=== PATIENT | female | born 1955 | race Asian ===

== ENCOUNTER 2018-02-25 07:08 | Inpatient (IN) | payer OTHER ==
[~2018-02-25 07:08] MED LIST: CEFAZOLIN 1 GM INJ; DEXAMETHASONE 4 MG/ML 1 ML INJ; ONDANSETRON 4 MG INJ
[2018-02-25] MEDS ORDERED: FENTAnyl 50 MCG/ML VIAL (07:57)
[2018-02-25] MEDS ORDERED: PROPOFOL 20 ML (07:58)
[2018-02-25] MEDS ORDERED: MIDAZOLAM 1 MG/ML 2 ML INJ (07:58)
[2018-02-25] MEDS ORDERED: METOCLOPRAMIDE 10 MG INJ (08:00)
[2018-02-25] MEDS ORDERED: LIDOCAINE 2% (SDV) 5 ML INJ (08:00)
[2018-02-25] MEDS: ACETAMINOPHEN 1000MG/100ML IV 100 ML IVPB (08:07)
[2018-02-25] MEDS: oxyCODONE (CR) 10 MG TAB [oxyCONTIN] PO (08:08)
[2018-02-25] MEDS: ONDANSETRON 4 MG INJ IV ×4 (08:08→22:18)
[2018-02-25] MEDS: LACTATED RINGER'S 1,000 ML IV* (08:08)
[2018-02-25] MEDS: LANSOPRAZOLE 30 MG CAP PO (08:08)
[2018-02-25] MEDS: DEXAMETHASONE 4 MG/ML 1 ML INJ IV (08:08)
[2018-02-25] MEDS ORDERED: BUPIVACAINE 0.75%/DEXT (SPINAL) 2 ML INJ (08:25)
[2018-02-25] MEDS ORDERED: morphine SULFATE/PF (10 MG/10 ML) INJ (08:25)
[2018-02-25] MEDS ORDERED: EPINEPHrine 1 MG INJ (08:26)
[2018-02-25] MEDS ORDERED: DIPHENHYDRAMINE 50 MG INJ IV ×2 (09:00→10:00)
[2018-02-25] MEDS: ASPIRIN (EC) 325 MG TAB PO ×3 (09:00→20:41)
[2018-02-25] MEDS: GABAPENTIN 100 MG CAP PO ×2 (09:00→20:40)
[2018-02-25] MEDS ORDERED: MAGNESIUM HYDROXIDE 30ML CUP PO (09:00)
[2018-02-25] MEDS ORDERED: NACL 0.9% 3 ML SYG IV (09:00)
[2018-02-25] MEDS ORDERED: BETHANECHOL 25 MG TAB PO (09:00)
[2018-02-25] MEDS ORDERED: BISACODYL 10 MG SUPP PR (09:00)
[2018-02-25] MEDS ORDERED: oxyCODONE 5 MG TAB PO (09:00)
[2018-02-25] MEDS ORDERED: NALOXONE (0.4 MG/ML) INJ IV (09:00)
[2018-02-25] MEDS ORDERED: NA PHOSPHATE/BIPHOS 133 ML ENEMA PR (09:00)
[2018-02-25] MEDS: TRANEXAMIC ACID 1,000 MG in NS 100 ML PRE-OP X1 IVPB (09:00)
[2018-02-25] MEDS: TRANEXAMIC ACID 1,000 MG in NS 100 ML INTRA-OP X1 IVPB (09:30)
[2018-02-25] MEDS ORDERED: MEPERIDINE 25 MG INJ IV (10:00)
[2018-02-25] MEDS ORDERED: IPRATROPIUM (NEB) 0.5 MG/2.5 ML AMP HHN (10:00)
[2018-02-25] MEDS ORDERED: ONDANSETRON 4 MG INJ IV (10:00)
[2018-02-25] MEDS ORDERED: FENTAnyl 50 MCG/ML VIAL IV ×2 (10:00)
[2018-02-25] MEDS ORDERED: HYDROmorphONE 1 MG/5 ML IV SYRINGE IV ×3 (10:00)
[2018-02-25] MEDS: CEFAZOLIN 1 GM/50 ML (PMX) 50 ML IVPB ×3 (10:20→18:03)
[2018-02-25] MEDS: BACITRACIN 50000 UNITS INJ (10:27)
[2018-02-25] MEDS: POLYMYXIN B 500000 UNIT INJ (10:29)
[2018-02-25] MEDS: POLYMYXIN/BACITRACIN 1L IRRIG (10:29)
[2018-02-25] MEDS ORDERED: HIP PAIN COCKTAIL (CEFUROXIME) INJ (10:38)
[2018-02-25] MEDS: DOCUSATE SODIUM 100 MG CAP PO (12:47)
[2018-02-25] MEDS: SOD CHLORIDE 0.9% 1,000 ML IV (14:10)
[2018-02-25] MEDS ORDERED: GLUCAGON 1 MG INJ IM (16:00)
[2018-02-25] MEDS ORDERED: GLUCOSE GEL 15 GRAM TUBE BUCCAL (16:00)
[2018-02-25] MEDS ORDERED: GLUCOSE GEL 15 GRAM TUBE PO ×2 (16:00)
[2018-02-25] MEDS ORDERED: DEXTROSE 50% 50 ML SYRINGE IV ×2 (16:00)
[2018-02-25] MEDS: metFORMIN 500 MG TAB PO (18:04)
[2018-02-25] MEDS: INSULIN ASPART [NOVOLOG] 3 ML PEN SC ×2 (18:05→20:40)
[2018-02-25] MEDS: ATORVASTATIN 20 MG TAB PO (20:41)
[2018-02-26] MEDS: CEFAZOLIN 1 GM/50 ML (PMX) 50 ML IVPB (01:54)
[2018-02-26] MEDS: ACCU-CHEK XX ×2 (02:11→22:02)
[2018-02-26] MEDS: ONDANSETRON 4 MG INJ IV (03:00)
[2018-02-26] MEDS: SOD CHLORIDE 0.9% 1,000 ML IV ×2 (03:48→17:31)
[2018-02-26] MEDS: PANTOPRAZOLE (EC) 40 MG TAB PO (05:28)
[2018-02-26 05:49] LABS: ADD MAN DIFF? NO
[2018-02-26 05:55] LABS: BASOPHILS % 0.1 % (0.0-2.0); HEMATOCRIT 22.8 % (37.0-47.0); HEMOGLOBIN 7.3 g/dl (12.0-16.0); LYMPHOCYTES # 0.9 10^3/ul (0.8-2.9); LYMPHOCYTES % 11.9 % (15.0-51.0); MEAN CORPUSCULAR HEMOGLOBIN 30.2 pg (29.0-33.0); MEAN CORPUSCULAR VOLUME 94.2 fl (82.0-101.0); MEAN PLATELET VOLUME 10.4 fl (7.4-10.4); MONOCYTES % 13.3 % (0.0-11.0); NEUTROPHIL # 5.7 10^3/ul (1.6-7.5); NEUTROPHILS % 74.3 % (39.0-77.0); PLATELET COUNT 195 10^3/UL (140-415); RED BLOOD COUNT 2.42 10^6/ul (4.20-5.40)
[2018-02-26 05:55] LABS: WHITE BLOOD COUNT 7.7 10^3/ul (4.8-10.8)
[2018-02-26 06:14] LABS: ANION GAP 13 (8-16); BLOOD UREA NITROGEN 22 mg/dl (7-20); CALCIUM 8.7 mg/dl (8.4-10.2); CARBON DIOXIDE 23 mmol/L (21-31); CHLORIDE 109 mmol/L (97-110); CREATININE 1.45 mg/dl (0.44-1.00); GLUCOSE 114 mg/dl (70-220); POTASSIUM 4.9 mmol/L (3.5-5.1); SODIUM 140 mmol/L (135-144)
[2018-02-26] MEDS: INSULIN ASPART [NOVOLOG] 3 ML PEN SC ×6 (07:50→21:00)
[2018-02-26] MEDS: DOCUSATE SODIUM 100 MG CAP PO ×2 (08:57→21:05)
[2018-02-26] MEDS: oxyCODONE 5 MG TAB PO ×4 (08:58→21:12)
[2018-02-26] MEDS: FERROUS FUMARATE (SR) TAB PO ×2 (08:58→21:06)
[2018-02-26] MEDS: metFORMIN 500 MG TAB PO (08:58)
[2018-02-26] MEDS: CELECOXIB 200 MG CAP PO ×2 (08:59→21:06)
[2018-02-26] MEDS: LISINOPRIL 10 MG TAB PO (08:59)
[2018-02-26] MEDS: ASPIRIN (EC) 325 MG TAB PO ×2 (08:59→21:06)
[2018-02-26] MEDS: GABAPENTIN 100 MG CAP PO ×2 (09:00→21:00)
[2018-02-26 11:15] LABS: ADD UMIC YES; UR ASCORBIC ACID NEGATIVE (NEGATIVE); UR BACTERIA FEW /HPF (NONE SEEN); UR BILIRUBIN (Dip) NEGATIVE (NEGATIVE); UR BLOOD (Dip) 1+ mg/dL (NEGATIVE); UR CLARITY SLIGHTLY CLOUDY (CLEAR); UR COLOR STRAW (YELLOW); UR GLUCOSE (Dip) NEGATIVE (NEGATIVE); UR KETONES (Dip) NEGATIVE (NEGATIVE); UR LEUKOCYTE ESTERASE (Dip) 3+ Leu/ul (NEGATIVE); UR MUCUS FEW /HPF (NONE SEEN); UR NITRITE (Dip) NEGATIVE (NEGATIVE); UR RBC 5 /HPF (0-5); UR SPECIFIC GRAVITY (Dip) 1.011 (1.003-1.030); UR TOTAL PROTEIN (Dip) NEGATIVE (NEGATIVE); UR UROBILINOGEN (Dip) NEGATIVE (NEGATIVE); UR WBC 88 /HPF (0-5)
[2018-02-26 12:12] LABS: IRON 31 ug/dl (35-150)
[2018-02-26] MEDS: SOD CHLORIDE 0.9% 500 ML IV (12:20)
[2018-02-26 12:21] LABS: % IRON SATURATION 12 % SAT (22-52); TOTAL IRON BINDING CAPACITY 257 ug/dl (241-421)
[2018-02-26 12:27] LABS: HEMOGLOBIN A1C 5.7 % (0-5.9)
[2018-02-26 15:08] LABS: HEMATOCRIT 21.3 % (37.0-47.0)
[2018-02-26 15:23] LABS: HEMOGLOBIN 6.6 g/dl (12.0-16.0)
[2018-02-26] MEDS: SOD CHLORIDE 0.9% 250 ML IV* (15:34)
[2018-02-26] MEDS: SOD FERRIC GLUC COMPLX 125 MG in SOD CHLORIDE 0.9% 100 ML IVPB (17:27)
[2018-02-26] MEDS: INSULIN GLARGINE [LANTus] (100 UNITS/ML) SYG SC (21:04)
[2018-02-26] MEDS: ATORVASTATIN 20 MG TAB PO (21:06)
[2018-02-26 23:22] LABS: IMMEDIATE SPIN CROSSMATCH 1 2
[2018-02-27 01:13] LABS: HEMATOCRIT 24.9 % (37.0-47.0); HEMOGLOBIN 8.1 g/dl (12.0-16.0)
[2018-02-27] MEDS: SOD CHLORIDE 0.9% 1,000 ML IV ×2 (05:00→16:57)
[2018-02-27] MEDS: oxyCODONE 5 MG TAB PO ×5 (05:00→20:57)
[2018-02-27] MEDS: PANTOPRAZOLE (EC) 40 MG TAB PO (05:02)
[2018-02-27 05:11] LABS: WHITE BLOOD COUNT 7.2 10^3/ul (4.8-10.8)
[2018-02-27 05:11] LABS: ADD MAN DIFF? NO; BASOPHILS % 0.3 % (0.0-2.0); EOSINOPHILS # 0.1 10^3/ul (0.0-0.5); EOSINOPHILS % 1.3 % (0.0-7.0); HEMATOCRIT 27.1 % (37.0-47.0); LYMPHOCYTES # 1.2 10^3/ul (0.8-2.9); LYMPHOCYTES % 16.3 % (15.0-51.0); MEAN CORPUSCULAR HEMOGLOBIN 31.3 pg (29.0-33.0); MEAN CORPUSCULAR HGB CONC 33.2 g/dl (32.0-37.0); MEAN CORPUSCULAR VOLUME 94.1 fl (82.0-101.0); MEAN PLATELET VOLUME 10.5 fl (7.4-10.4); MONOCYTE # 0.9 10^3/ul (0.3-0.9); MONOCYTES % 12.1 % (0.0-11.0); NEUTROPHILS % 69.7 % (39.0-77.0); PLATELET COUNT 137 10^3/UL (140-415); RED BLOOD COUNT 2.88 10^6/ul (4.20-5.40); RED CELL DISTRIBUTION WIDTH 13.2 % (11.5-14.5)
[2018-02-27 05:25] LABS: IRON 142 ug/dl (35-150)
[2018-02-27 05:34] LABS: % IRON SATURATION 67 % SAT (22-52); TOTAL IRON BINDING CAPACITY 213 ug/dl (241-421)
[2018-02-27 06:38] LABS: ANION GAP 10 (8-16); BLOOD UREA NITROGEN 21 mg/dl (7-20); CALCIUM 8.1 mg/dl (8.4-10.2); CARBON DIOXIDE 23 mmol/L (21-31); CHLORIDE 111 mmol/L (97-110); CREATININE 1.34 mg/dl (0.44-1.00); GLUCOSE 101 mg/dl (70-220); POTASSIUM 4.4 mmol/L (3.5-5.1); SODIUM 140 mmol/L (135-144)
[2018-02-27] MEDS: INSULIN ASPART [NOVOLOG] 3 ML PEN SC ×7 (07:50→21:00)
[2018-02-27] MEDS: GABAPENTIN 100 MG CAP PO ×3 (08:37→21:00)
[2018-02-27] MEDS: DOCUSATE SODIUM 100 MG CAP PO ×3 (08:37→21:00)
[2018-02-27] MEDS: ASPIRIN (EC) 325 MG TAB PO ×2 (08:37→20:54)
[2018-02-27] MEDS: FERROUS FUMARATE (SR) TAB PO ×2 (08:37→20:54)
[2018-02-27] MEDS: CELECOXIB 200 MG CAP PO ×2 (08:37→20:54)
[2018-02-27 12:29] LABS: HEMOGLOBIN 8.7 g/dl (12.0-16.0)
[2018-02-27] MEDS: LEVOFLOXACIN 500MG/D5W (PMX) 100 ML IVPB (15:00)
[2018-02-27] MEDS ORDERED: LEVOFLOXACIN 500MG/D5W (PMX) 100 ML IVPB (15:00)
[2018-02-27] MEDS: SOD FERRIC GLUC COMPLX 125 MG in SOD CHLORIDE 0.9% 100 ML IVPB (16:53)
[2018-02-27 18:47] LABS: HEMATOCRIT 28.9 % (37.0-47.0); HEMOGLOBIN 9.4 g/dl (12.0-16.0)
[2018-02-27] MEDS: ATORVASTATIN 20 MG TAB PO (20:53)
[2018-02-27] MEDS: INSULIN GLARGINE [LANTus] (100 UNITS/ML) SYG SC (20:53)
[2018-02-27] MEDS: ACCU-CHEK XX (21:29)
[2018-02-28] MEDS: PANTOPRAZOLE (EC) 40 MG TAB PO (05:51)
[2018-02-28] MEDS: SENNA/DOCUSATE NA (8.6MG/50MG) TAB PO (05:51)
[2018-02-28] MEDS: oxyCODONE 5 MG TAB PO ×3 (05:53→17:09)
[2018-02-28] MEDS: SOD CHLORIDE 0.9% 1,000 ML IV (05:55)
[2018-02-28 06:00] LABS: ADD MAN DIFF? NO
[2018-02-28 06:08] LABS: BASOPHILS % 0.3 % (0.0-2.0); EOSINOPHILS # 0.2 10^3/ul (0.0-0.5); EOSINOPHILS % 2.2 % (0.0-7.0); HEMATOCRIT 26.6 % (37.0-47.0); HEMOGLOBIN 8.7 g/dl (12.0-16.0); LYMPHOCYTES # 1.1 10^3/ul (0.8-2.9); LYMPHOCYTES % 13.8 % (15.0-51.0); MEAN CORPUSCULAR HEMOGLOBIN 31.1 pg (29.0-33.0); MEAN CORPUSCULAR HGB CONC 32.7 g/dl (32.0-37.0); MEAN PLATELET VOLUME 10.5 fl (7.4-10.4); MONOCYTE # 0.8 10^3/ul (0.3-0.9); MONOCYTES % 10.4 % (0.0-11.0); NEUTROPHIL # 5.7 10^3/ul (1.6-7.5); NEUTROPHILS % 72.7 % (39.0-77.0); PLATELET COUNT 133 10^3/UL (140-415); RED CELL DISTRIBUTION WIDTH 13.4 % (11.5-14.5)
[2018-02-28 06:08] LABS: WHITE BLOOD COUNT 7.9 10^3/ul (4.8-10.8)
[2018-02-28 06:26] LABS: ANION GAP 8 (8-16); BLOOD UREA NITROGEN 14 mg/dl (7-20); CALCIUM 8.2 mg/dl (8.4-10.2); CARBON DIOXIDE 23 mmol/L (21-31); CHLORIDE 112 mmol/L (97-110); CREATININE 1.27 mg/dl (0.44-1.00); GLUCOSE 78 mg/dl (70-220); POTASSIUM 4.1 mmol/L (3.5-5.1); SODIUM 139 mmol/L (135-144)
[2018-02-28] MEDS: INSULIN ASPART [NOVOLOG] 3 ML PEN SC ×7 (07:50→17:55)
[2018-02-28] MEDS: DOCUSATE SODIUM 100 MG CAP PO (08:50)
[2018-02-28] MEDS: FERROUS FUMARATE (SR) TAB PO (08:51)
[2018-02-28] MEDS: CELECOXIB 200 MG CAP PO (08:51)
[2018-02-28] MEDS: ASPIRIN (EC) 325 MG TAB PO (08:51)
[2018-02-28] MEDS: GABAPENTIN 100 MG CAP PO (09:00)
[2018-02-28] MEDS: LEVOFLOXACIN 250MG/D5W (PMX) 50 ML IVPB (15:00)
[2018-02-28] MEDS: SOD FERRIC GLUC COMPLX 125 MG in SOD CHLORIDE 0.9% 100 ML IVPB (16:50)
[2018-03-02 18:46] LABS: PTH CALCIUM 7.8 mg/dL (8.6-10.4)
[2018-03-03 06:41] LABS: PTH INTACT 50 pg/mL (14-64)
== END 2018-02-28 18:45 | disposition home health service (06) | DRG 470 ==
LOC: REC 07:08 → MS1 13:47
PROVIDERS: Orthopaedic Surgery Adult Reconstructive Orthopaedic Surgery
PROC: 0SRB04A Replacement of Left Hip Joint with Ceramic on Polyethylene Synthetic Substitute, Uncemented, Open Approach (ICD-10-PCS; principal; 2018-02-25 09:00)
PROC: 8E0YXBZ Computer Assisted Procedure of Lower Extremity (ICD-10-PCS; 2018-02-25 09:00)
PROC: 30233N1 Transfusion of Nonautologous Red Blood Cells into Peripheral Vein, Percutaneous Approach (ICD-10-PCS; 2018-02-25 09:30)
DX: M16.12 Unilateral primary osteoarthritis, left hip (principal); N17.9 Acute kidney failure, unspecified; D62 Acute posthemorrhagic anemia; N39.0 Urinary tract infection, site not specified; I10 Essential (primary) hypertension; E78.5 Hyperlipidemia, unspecified; E11.9 Type 2 diabetes mellitus without complications; I95.9 Hypotension, unspecified; D50.9 Iron deficiency anemia, unspecified
CPT/HCPCS: 36430; 72170; 73500; 73530; 76775; 80048; 81001; 82306; 82652; 82962; 83036; 83540; 83970; 85014; 85018; 85025; 86850; 86900; 86901; 86920; 87081; 87086; 88304; 88311; 97110; 97116; 97161; 97166; 97530

== ENCOUNTER 2018-03-31 05:42 | Inpatient (IN) | payer OTHER ==
[2018-03-31] MEDS: CEFAZOLIN 2 GM/50 ML (PMX) 50 ML IVPB (06:30)
[2018-03-31] MEDS ORDERED: LACTATED RINGER'S 1,000 ML IV* (06:30)
[2018-03-31] MEDS ORDERED: EPHEDrine SULFATE 50 MG/5 ML SYG (07:00)
[2018-03-31 07:28] LABS: ADD MAN DIFF? NO
[2018-03-31] MEDS ORDERED: CEFAZOLIN 1 GM INJ (07:30)
[2018-03-31] MEDS ORDERED: ROCURONIUM 50 MG INJ ×2 (07:30→10:09)
[2018-03-31] MEDS ORDERED: PROPOFOL 20 ML (07:30)
[2018-03-31] MEDS ORDERED: MIDAZOLAM 1 MG/ML 2 ML INJ (07:31)
[2018-03-31] MEDS ORDERED: morphine SULFATE/PF (10 MG/10 ML) INJ (07:31)
[2018-03-31] MEDS ORDERED: ROPIVACAINE 0.5 % 30 ML VIAL (07:31)
[2018-03-31] MEDS ORDERED: BUPIVACAINE 0.75%/DEXT (SPINAL) 2 ML INJ (07:31)
[2018-03-31 07:37] LABS: BASOPHILS % 0.7 % (0.0-2.0); EOSINOPHILS # 0.2 10^3/ul (0.0-0.5); EOSINOPHILS % 3.7 % (0.0-7.0); HEMATOCRIT 34.6 % (37.0-47.0); HEMOGLOBIN 11.1 g/dl (12.0-16.0); LYMPHOCYTES # 1.2 10^3/ul (0.8-2.9); LYMPHOCYTES % 21.1 % (15.0-51.0); MEAN CORPUSCULAR HEMOGLOBIN 30.6 pg (29.0-33.0); MEAN CORPUSCULAR HGB CONC 32.1 g/dl (32.0-37.0); MEAN CORPUSCULAR VOLUME 95.3 fl (82.0-101.0); MEAN PLATELET VOLUME 11.6 fl (7.4-10.4); MONOCYTE # 0.5 10^3/ul (0.3-0.9); MONOCYTES % 8.5 % (0.0-11.0); NEUTROPHIL # 3.7 10^3/ul (1.6-7.5); NEUTROPHILS % 65.8 % (39.0-77.0); PLATELET COUNT 217 10^3/UL (140-415); RED BLOOD COUNT 3.63 10^6/ul (4.20-5.40); RED CELL DISTRIBUTION WIDTH 12.8 % (11.5-14.5)
[2018-03-31 07:37] LABS: WHITE BLOOD COUNT 5.6 10^3/ul (4.8-10.8)
[2018-03-31] MEDS: SOD CHLORIDE 0.9% 1,000 ML IV ×2 (07:41→16:20)
[2018-03-31 07:54] LABS: INR 0.93; PROTIME 12.6 Sec (11.9-14.9)
[2018-03-31 07:55] LABS: PARTIAL THROMBOPLASTIN TIME 29.7 Sec (25.0-35.0)
[2018-03-31 07:56] LABS: ALANINE AMINOTRANSFERASE 20 IU/L (13-69); ALBUMIN 4.1 g/dl (3.3-4.9); ALBUMIN/GLOBULIN RATIO 1.13; ALKALINE PHOSPHATASE 98 IU/L (42-121); ANION GAP 15 (8-16); ASPARTATE AMINO TRANSFERASE 24 IU/L (15-46); BILIRUBIN,INDIRECT 0.5 mg/dl (0-1.1); BILIRUBIN,TOTAL 0.5 mg/dl (0.2-1.3); BLOOD UREA NITROGEN 34 mg/dl (7-20); CALCIUM 9.6 mg/dl (8.4-10.2); CARBON DIOXIDE 25 mmol/L (21-31); CHLORIDE 104 mmol/L (97-110); CREATININE 1.53 mg/dl (0.44-1.00); GLUCOSE 90 mg/dl (70-220); SODIUM 139 mmol/L (135-144); TOTAL PROTEIN 7.7 g/dl (6.1-8.1)
[2018-03-31] MEDS ORDERED: PHENYLephrine (100 MCG/ML) 5ML SYG ×3 (07:59→09:30)
[2018-03-31] MEDS ORDERED: MAGNESIUM HYDROXIDE 30ML CUP PO (08:00)
[2018-03-31] MEDS ORDERED: BISACODYL 10 MG SUPP PR (08:00)
[2018-03-31] MEDS: ASPIRIN (EC) 325 MG TAB PO (08:00)
[2018-03-31] MEDS ORDERED: NACL 0.9% 3 ML SYG IV (08:00)
[2018-03-31] MEDS ORDERED: NA PHOSPHATE/BIPHOS 133 ML ENEMA PR (08:00)
[2018-03-31] MEDS ORDERED: DIPHENHYDRAMINE 50 MG INJ IV ×3 (08:00→10:30)
[2018-03-31] MEDS ORDERED: ONDANSETRON 4 MG INJ IV ×2 (08:00→10:30)
[2018-03-31] MEDS ORDERED: NALOXONE (0.4 MG/ML) INJ IV ×2 (08:00→10:30)
[2018-03-31] MEDS ORDERED: BETHANECHOL 25 MG TAB PO (08:00)
[2018-03-31] MEDS ORDERED: ONDANSETRON 4 MG INJ (08:20)
[2018-03-31] MEDS ORDERED: METOCLOPRAMIDE 10 MG INJ (08:20)
[2018-03-31] MEDS ORDERED: HETASTARCH 6% NACL 500 ML (08:20)
[2018-03-31] MEDS ORDERED: ACETAMINOPHEN 1000MG/100ML IV 100 ML (08:20)
[2018-03-31] MEDS ORDERED: DEXAMETHASONE 4 MG/ML 1 ML INJ (08:20)
[2018-03-31] MEDS: LACTATED RINGER'S 1,000 ML IV* (08:30)
[2018-03-31] MEDS: BACITRACIN 50000 UNITS INJ IRR (08:45)
[2018-03-31] MEDS: POLYMYXIN B 500000 UNIT INJ (08:45)
[2018-03-31] MEDS: HIP PAIN COCKTAIL (CEFUROXIME) INJ (08:46)
[2018-03-31] MEDS: TRANEXAMIC ACID 1,000 MG in NS 100 ML PRE-OP X1 IVPB (08:47)
[2018-03-31] MEDS: GABAPENTIN 100 MG CAP PO ×3 (09:00→20:49)
[2018-03-31] MEDS ORDERED: ALBUMIN HUMAN 5% 250 ML (10:09)
[2018-03-31] MEDS ORDERED: ALBUMIN HUMAN 5% 250 ML IV (10:30)
[2018-03-31] MEDS ORDERED: HYDROmorphONE 1 MG/5 ML IV SYRINGE IV ×3 (10:30)
[2018-03-31] MEDS ORDERED: LABETALOL HCL 20MG INJ IV (10:30)
[2018-03-31] MEDS ORDERED: MEPERIDINE 25 MG INJ IV (10:30)
[2018-03-31] MEDS ORDERED: FENTAnyl 50 MCG/ML VIAL IV ×3 (10:30)
[2018-03-31] MEDS ORDERED: ACETAMINOPHEN 500 MG TAB PO (10:30)
[2018-03-31] MEDS ORDERED: HYDROmorphONE 0.5 MG/0.5 ML SYG IV ×2 (10:30)
[2018-03-31] MEDS ORDERED: HYDROCODONE/APAP (5/325) TAB PO (10:30)
[2018-03-31] MEDS ORDERED: NALBUPHINE HCL (10 MG/1 ML) INJ IV (10:30)
[2018-03-31] MEDS ORDERED: hydrALAzine 20 MG INJ IV (10:30)
[2018-03-31] MEDS ORDERED: EPHEDrine SULFATE 50 MG/5 ML SYG IV (10:30)
[2018-03-31] MEDS ORDERED: morphine 2 MG INJ IV (10:30)
[2018-03-31] MEDS ORDERED: OXYCODONE/ACETAMINOPHEN (5/325) TAB PO ×2 (10:30)
[2018-03-31] MEDS ORDERED: METOCLOPRAMIDE 10 MG INJ IV (10:30)
[2018-03-31] MEDS: TRANEXAMIC ACID 1,000 MG in NS 100 ML INTRA-OP X1 IVPB ×2 (11:00)
[2018-03-31] MEDS ORDERED: SUGAMMADEX SODIUM 200 MG/2 ML VIAL IV (11:15)
[2018-03-31] MEDS: CEFAZOLIN 1 GM/50 ML (PMX) 50 ML IVPB ×2 (12:01→16:20)
[2018-03-31] MEDS: ONDANSETRON 4 MG INJ IV (12:02)
[2018-03-31] MEDS: DOCUSATE SODIUM 100 MG CAP PO (12:03)
[2018-03-31 12:16] LABS: ADD MAN DIFF? NO
[2018-03-31 12:21] LABS: ABNORMAL IP MESSAGE 1; BASOPHILS % 0.1 % (0.0-2.0); EOSINOPHILS % 0.5 % (0.0-7.0); HEMATOCRIT 23.8 % (37.0-47.0); HEMOGLOBIN 7.4 g/dl (12.0-16.0); LYMPHOCYTES # 0.6 10^3/ul (0.8-2.9); LYMPHOCYTES % 7.4 % (15.0-51.0); MEAN CORPUSCULAR HEMOGLOBIN 30.5 pg (29.0-33.0); MEAN CORPUSCULAR HGB CONC 31.1 g/dl (32.0-37.0); MEAN CORPUSCULAR VOLUME 97.9 fl (82.0-101.0); MONOCYTE # 0.2 10^3/ul (0.3-0.9); MONOCYTES % 2.1 % (0.0-11.0); NEUTROPHIL # 7.2 10^3/ul (1.6-7.5); NEUTROPHILS % 89.4 % (39.0-77.0); PLATELET COUNT 131 10^3/UL (140-415); RED BLOOD COUNT 2.43 10^6/ul (4.20-5.40); RED CELL DISTRIBUTION WIDTH 12.6 % (11.5-14.5)
[2018-03-31 12:22] LABS: POSITIVE DIFF @See below
[2018-03-31 16:38] LABS: IMMEDIATE SPIN CROSSMATCH 1 2
[2018-03-31] MEDS: INSULIN GLARGINE [LANTus] (100 UNITS/ML) SYG SC (20:52)
[2018-04-01] MEDS: CEFAZOLIN 1 GM/50 ML (PMX) 50 ML IVPB (00:03)
[2018-04-01 05:21] LABS: ADD MAN DIFF? NO
[2018-04-01 05:28] LABS: BASOPHILS % 0.1 % (0.0-2.0); EOSINOPHILS % 0.4 % (0.0-7.0); HEMOGLOBIN 7.6 g/dl (12.0-16.0); LYMPHOCYTES # 1.1 10^3/ul (0.8-2.9); LYMPHOCYTES % 13.8 % (15.0-51.0); MEAN CORPUSCULAR HEMOGLOBIN 31.1 pg (29.0-33.0); MEAN CORPUSCULAR VOLUME 94.3 fl (82.0-101.0); MEAN PLATELET VOLUME 11.1 fl (7.4-10.4); MONOCYTE # 0.9 10^3/ul (0.3-0.9); MONOCYTES % 11.6 % (0.0-11.0); NEUTROPHIL # 5.6 10^3/ul (1.6-7.5); NEUTROPHILS % 73.8 % (39.0-77.0); PLATELET COUNT 134 10^3/UL (140-415); RED BLOOD COUNT 2.44 10^6/ul (4.20-5.40)
[2018-04-01 05:28] LABS: WHITE BLOOD COUNT 7.6 10^3/ul (4.8-10.8)
[2018-04-01 05:55] LABS: ANION GAP 7 (8-16); BLOOD UREA NITROGEN 28 mg/dl (7-20); CALCIUM 7.2 mg/dl (8.4-10.2); CARBON DIOXIDE 22 mmol/L (21-31); CHLORIDE 113 mmol/L (97-110); CREATININE 1.51 mg/dl (0.44-1.00); GLUCOSE 88 mg/dl (70-220); POTASSIUM 4.2 mmol/L (3.5-5.1); SODIUM 138 mmol/L (135-144)
[2018-04-01] MEDS: SOD CHLORIDE 0.9% 1,000 ML IV ×2 (06:34→20:50)
[2018-04-01] MEDS: PANTOPRAZOLE (EC) 40 MG TAB PO (06:34)
[2018-04-01] MEDS: oxyCODONE 5 MG TAB PO ×2 (07:35→18:34)
[2018-04-01] MEDS: INSULIN ASPART [NOVOLOG] 3 ML PEN SC ×4 (08:30→20:41)
[2018-04-01] MEDS: ASPIRIN (EC) 325 MG TAB PO (08:55)
[2018-04-01] MEDS: FERROUS FUMARATE (SR) TAB PO ×2 (08:55→20:36)
[2018-04-01] MEDS: CELECOXIB 200 MG CAP PO (08:55)
[2018-04-01] MEDS: DOCUSATE SODIUM 100 MG CAP PO ×2 (08:56→20:36)
[2018-04-01] MEDS: GABAPENTIN 100 MG CAP PO ×3 (08:56→20:43)
[2018-04-01 09:20] LABS: HEMOGLOBIN A1C 5.7 % (0-5.9)
[2018-04-01] MEDS ORDERED: ONDANSETRON 4 MG INJ IV (11:00)
[2018-04-01] MEDS ORDERED: ACETAMINOPHEN 1000MG/100ML IV 100 ML IVPB (12:00)
[2018-04-01] MEDS: morphine 2 MG INJ IV ×3 (12:44→20:37)
[2018-04-01 18:46] LABS: IRON 44 ug/dl (35-150)
[2018-04-01 18:55] LABS: % IRON SATURATION 23 % SAT (22-52); TOTAL IRON BINDING CAPACITY 194 ug/dl (241-421)
[2018-04-01] MEDS: ATORVASTATIN 20 MG TAB PO (20:36)
[2018-04-01] MEDS: INSULIN GLARGINE [LANTus] (100 UNITS/ML) SYG SC (20:49)
[2018-04-01] MEDS: ACETAMINOPHEN 325 MG TAB PO (20:52)
[2018-04-01] MEDS ORDERED: GLUCOSE GEL 15 GRAM TUBE PO ×2 (21:00)
[2018-04-01] MEDS ORDERED: GLUCOSE GEL 15 GRAM TUBE BUCCAL (21:00)
[2018-04-01] MEDS ORDERED: GLUCAGON 1 MG INJ IM (21:00)
[2018-04-01] MEDS ORDERED: DEXTROSE 50% 50 ML SYRINGE IV ×2 (21:00)
[2018-04-02] MEDS: oxyCODONE 5 MG TAB PO ×4 (00:09→17:37)
[2018-04-02] MEDS: morphine 2 MG INJ IV ×3 (01:23→14:12)
[2018-04-02] MEDS: ACETAMINOPHEN 325 MG TAB PO ×4 (03:00→20:39)
[2018-04-02 05:15] LABS: ADD MAN DIFF? NO
[2018-04-02 05:16] LABS: BASOPHILS % 0.4 % (0.0-2.0); EOSINOPHILS # 0.3 10^3/ul (0.0-0.5); EOSINOPHILS % 3.6 % (0.0-7.0); HEMATOCRIT 23.5 % (37.0-47.0); HEMOGLOBIN 7.5 g/dl (12.0-16.0); LYMPHOCYTES # 1.3 10^3/ul (0.8-2.9); LYMPHOCYTES % 15.5 % (15.0-51.0); MEAN CORPUSCULAR HEMOGLOBIN 30.4 pg (29.0-33.0); MEAN CORPUSCULAR HGB CONC 31.9 g/dl (32.0-37.0); MEAN CORPUSCULAR VOLUME 95.1 fl (82.0-101.0); MEAN PLATELET VOLUME 11.3 fl (7.4-10.4); MONOCYTE # 0.9 10^3/ul (0.3-0.9); MONOCYTES % 11.2 % (0.0-11.0); NEUTROPHIL # 5.7 10^3/ul (1.6-7.5); NEUTROPHILS % 68.7 % (39.0-77.0); PLATELET COUNT 131 10^3/UL (140-415); RED BLOOD COUNT 2.47 10^6/ul (4.20-5.40); RED CELL DISTRIBUTION WIDTH 13.4 % (11.5-14.5)
[2018-04-02 05:16] LABS: WHITE BLOOD COUNT 8.3 10^3/ul (4.8-10.8)
[2018-04-02 05:37] LABS: ANION GAP 8 (8-16); BLOOD UREA NITROGEN 21 mg/dl (7-20); CALCIUM 7.8 mg/dl (8.4-10.2); CARBON DIOXIDE 22 mmol/L (21-31); CHLORIDE 113 mmol/L (97-110); CREATININE 1.41 mg/dl (0.44-1.00); GLUCOSE 91 mg/dl (70-220); POTASSIUM 4.1 mmol/L (3.5-5.1); SODIUM 139 mmol/L (135-144)
[2018-04-02] MEDS: PANTOPRAZOLE (EC) 40 MG TAB PO (06:54)
[2018-04-02] MEDS: INSULIN ASPART [NOVOLOG] 3 ML PEN SC ×4 (08:57→20:41)
[2018-04-02] MEDS: DOCUSATE SODIUM 100 MG CAP PO ×2 (08:59→20:38)
[2018-04-02] MEDS: FERROUS FUMARATE (SR) TAB PO ×2 (08:59→20:38)
[2018-04-02] MEDS: GABAPENTIN 100 MG CAP PO ×2 (08:59→09:00)
[2018-04-02] MEDS: HEPARIN 5,000 UNIT/0.5 ML VIAL SC ×3 (09:06→20:45)
[2018-04-02] MEDS: LEVOFLOXACIN 500 MG TAB PO (14:11)
[2018-04-02] MEDS: ONDANSETRON 4 MG INJ IV (18:48)
[2018-04-02] MEDS: ATORVASTATIN 20 MG TAB PO (20:38)
[2018-04-02] MEDS: INSULIN GLARGINE [LANTus] (100 UNITS/ML) SYG SC (20:43)
[2018-04-03] MEDS: ACETAMINOPHEN 325 MG TAB PO ×4 (02:32→21:04)
[2018-04-03] MEDS: PANTOPRAZOLE (EC) 40 MG TAB PO (05:14)
[2018-04-03] MEDS: oxyCODONE 5 MG TAB PO ×4 (05:14→16:42)
[2018-04-03] MEDS: LEVOFLOXACIN 250 MG TAB PO (05:15)
[2018-04-03] MEDS: ONDANSETRON 4 MG INJ IV ×2 (05:16→12:44)
[2018-04-03] MEDS: HEPARIN 5,000 UNIT/0.5 ML VIAL SC ×3 (05:17→21:21)
[2018-04-03 05:41] LABS: ADD MAN DIFF? NO
[2018-04-03 05:44] LABS: BASOPHILS % 0.2 % (0.0-2.0); EOSINOPHILS # 0.3 10^3/ul (0.0-0.5); HEMATOCRIT 23.3 % (37.0-47.0); HEMOGLOBIN 7.5 g/dl (12.0-16.0); LYMPHOCYTES # 1.2 10^3/ul (0.8-2.9); LYMPHOCYTES % 13.3 % (15.0-51.0); MEAN CORPUSCULAR HEMOGLOBIN 30.6 pg (29.0-33.0); MEAN CORPUSCULAR HGB CONC 32.2 g/dl (32.0-37.0); MEAN CORPUSCULAR VOLUME 95.1 fl (82.0-101.0); MEAN PLATELET VOLUME 11.5 fl (7.4-10.4); MONOCYTE # 0.8 10^3/ul (0.3-0.9); MONOCYTES % 8.7 % (0.0-11.0); NEUTROPHIL # 6.6 10^3/ul (1.6-7.5); NEUTROPHILS % 74.2 % (39.0-77.0); PLATELET COUNT 148 10^3/UL (140-415); RED BLOOD COUNT 2.45 10^6/ul (4.20-5.40); RED CELL DISTRIBUTION WIDTH 13.2 % (11.5-14.5)
[2018-04-03 05:44] LABS: WHITE BLOOD COUNT 8.9 10^3/ul (4.8-10.8)
[2018-04-03 06:18] LABS: ANION GAP 9 (8-16); BLOOD UREA NITROGEN 24 mg/dl (7-20); CARBON DIOXIDE 23 mmol/L (21-31); CHLORIDE 109 mmol/L (97-110); CREATININE 1.53 mg/dl (0.44-1.00); GLUCOSE 96 mg/dl (70-220); POTASSIUM 4.2 mmol/L (3.5-5.1); SODIUM 137 mmol/L (135-144)
[2018-04-03] MEDS: FERROUS FUMARATE (SR) TAB PO ×2 (08:56→21:03)
[2018-04-03] MEDS: INSULIN ASPART [NOVOLOG] 3 ML PEN SC ×4 (08:56→21:00)
[2018-04-03] MEDS: DOCUSATE SODIUM 100 MG CAP PO ×2 (08:56→21:03)
[2018-04-03] MEDS: BISACODYL (EC) 5 MG TAB PO (16:42)
[2018-04-03] MEDS ORDERED: NITROFURANTOIN (SR) 100 MG CAP PO (21:00)
[2018-04-03] MEDS: ATORVASTATIN 20 MG TAB PO (21:03)
[2018-04-03] MEDS: INSULIN GLARGINE [LANTus] (100 UNITS/ML) SYG SC (22:27)
[2018-04-04] MEDS: oxyCODONE 5 MG TAB PO ×2 (01:11→13:22)
[2018-04-04] MEDS: ACETAMINOPHEN 325 MG TAB PO ×3 (03:00→14:59)
[2018-04-04] MEDS: PANTOPRAZOLE (EC) 40 MG TAB PO (06:10)
[2018-04-04] MEDS: HEPARIN 5,000 UNIT/0.5 ML VIAL SC ×2 (06:27→15:00)
[2018-04-04] MEDS: INSULIN ASPART [NOVOLOG] 3 ML PEN SC ×2 (07:50→11:40)
[2018-04-04] MEDS: SENNA/DOCUSATE NA (8.6MG/50MG) TAB PO (08:10)
[2018-04-04] MEDS: FERROUS FUMARATE (SR) TAB PO (08:14)
[2018-04-04 08:39] LABS: ADD MAN DIFF? NO
[2018-04-04 08:51] LABS: WHITE BLOOD COUNT 7.6 10^3/ul (4.8-10.8)
[2018-04-04 08:51] LABS: BASOPHILS % 0.3 % (0.0-2.0); EOSINOPHILS # 0.3 10^3/ul (0.0-0.5); EOSINOPHILS % 4.2 % (0.0-7.0); HEMATOCRIT 24.5 % (37.0-47.0); HEMOGLOBIN 7.9 g/dl (12.0-16.0); LYMPHOCYTES # 1.3 10^3/ul (0.8-2.9); LYMPHOCYTES % 16.8 % (15.0-51.0); MEAN CORPUSCULAR HEMOGLOBIN 30.7 pg (29.0-33.0); MEAN CORPUSCULAR HGB CONC 32.2 g/dl (32.0-37.0); MEAN CORPUSCULAR VOLUME 95.3 fl (82.0-101.0); MEAN PLATELET VOLUME 11.1 fl (7.4-10.4); MONOCYTE # 0.7 10^3/ul (0.3-0.9); MONOCYTES % 9.7 % (0.0-11.0); NEUTROPHIL # 5.2 10^3/ul (1.6-7.5); NEUTROPHILS % 68.5 % (39.0-77.0); PLATELET COUNT 184 10^3/UL (140-415); RED BLOOD COUNT 2.57 10^6/ul (4.20-5.40); RED CELL DISTRIBUTION WIDTH 13.2 % (11.5-14.5)
[2018-04-04 09:08] LABS: ANION GAP 10 (8-16); BLOOD UREA NITROGEN 19 mg/dl (7-20); CALCIUM 8.6 mg/dl (8.4-10.2); CARBON DIOXIDE 24 mmol/L (21-31); CHLORIDE 107 mmol/L (97-110); CREATININE 1.52 mg/dl (0.44-1.00); GLUCOSE 81 mg/dl (70-220); POTASSIUM 4.2 mmol/L (3.5-5.1); SODIUM 137 mmol/L (135-144)
[2018-04-04] MEDS ORDERED: CEPHALEXIN 500 MG CAP PO (14:00)
== END 2018-04-04 16:15 | disposition home health service (06) | DRG 481 ==
LOC: REC 05:42 → MS1 12:33
PROC: 0QS704Z Reposition Left Upper Femur with Internal Fixation Device, Open Approach (ICD-10-PCS; principal; 2018-03-31 07:30)
DX: S72.112A Displaced fracture of greater trochanter of left femur, initial encounter for closed fracture (principal); N17.9 Acute kidney failure, unspecified; N39.0 Urinary tract infection, site not specified; M97.02XA Periprosthetic fracture around internal prosthetic left hip joint, initial encounter; I12.9 Hypertensive chronic kidney disease with stage 1 through stage 4 chronic kidney disease, or unspecified chronic kidney disease; N18.9 Chronic kidney disease, unspecified; E11.9 Type 2 diabetes mellitus without complications; E78.5 Hyperlipidemia, unspecified; D50.9 Iron deficiency anemia, unspecified; Z96.642 Presence of left artificial hip joint
CPT/HCPCS: 36430; 71045; 72170; 73500; 73550; 80048; 80053; 82962; 83036; 83540; 85025; 85610; 85730; 86850; 86900; 86901; 86920; 87086; 93005; 97110; 97116; 97161; 97167; 97530; 97535